=== PATIENT | male | born 1965 | race Caucasian/White ===

== ENCOUNTER → 2017-07-15 | Day surgery (SDC) | payer OTHER ==
[2017-07-14 11:33] LABS: BASOPHILS % 0.3 % (0.0-1.0); EOSINOPHILS # (AUTO) 0.2 (0.0-0.4); EOSINOPHILS % 2.5 % (0.0-6.0); HEMATOCRIT 52.3 % (38.2-49.6); HEMOGLOBIN 16.2 g/dL (14.0-18.0); LYMPHOCYTES % 31.7 % (18.0-39.1); MEAN CORPUSCULAR VOLUME 80.7 fL (81-99); MONOCYTES # (AUTO) 0.5 (0.2-0.8); MONOCYTES % 7.3 % (4.4-11.3); NEUTROPHILS # (AUTO) 3.7 (2.1-6.9); PLATELET COUNT 232 x10e3/uL (140-360); RED BLOOD COUNT 6.48 x10e6/uL (4.3-5.7); RED CELL DISTRIBUTION WIDTH 15.9 % (11.7-14.4)
[2017-07-14 11:43] LABS: INR 1.1; PROTHROMBIN TIME 13.4 seconds (11.9-14.5)
[2017-07-14 11:53] LABS: ALANINE AMINOTRANSFERASE 19 IU/L (0-55); ALBUMIN 3.9 g/dL (3.5-5.0); ALBUMIN/GLOBULIN RATIO 1.1 (0.8-2.0); ALKALINE PHOSPHATASE 75 IU/L (40-150); BLOOD UREA NITROGEN 20 mg/dL (7-26); BUN/CREATININE RATIO 17 (6-25); CALCIUM 9.8 mg/dL (8.4-10.2); CARBON DIOXIDE 28 mmol/L (22-29); CHLORIDE 101 mmol/L (98-107); CHOLESTEROL 195 MD/DL (0-199); EST GLOMERULAR FILTRATION RATE > 60 ML/MIN (60-); GLUCOSE 142 mg/dL (74-118); HDL CHOLESTEROL 39 MG/DL (40-60); LDL CHOLESTEROL 119 MG/DL (60-130); SODIUM 139 mmol/L (136-145); TRIGLYCERIDES 185 MG/DL (0-149)
[~2017-07-15] VITALS: Ht 195.6 cm; Wt 138.3 kg
[~2017-07-15] MED LIST: AXIRON30 MG/1.5 IM; BYDUREON2 MG SC; CEPHALEXIN250 M1 PO; FENTANYL CITRATE/PF 100MCG/2 ML INJ ONE; HEPARIN SOD (PORCINE) 1000 UNIT/ML 30ML ONE; IOPAMIDOL 370 MG/ML 200 ML INFUS..BTL INJ ONE; LIDOCAINE HCL 2% LOCAL 20 ML VIAL ONE; LOSARTAN POTASS50 MG PO; METFORMIN HCL1000 MG PO; METOPROLOL SUCC50 MG PO; METOPROLOL TART50 MG PO; MIDAZOLAM HCL 2 MG/2 ML VIAL ONE; MORPHINE SULFATE 2 MG/ML SYR ONE; NITROGLYCERIN/D5W 200 MCG/ML 250 ML ONE; SODIUM CHLORIDE 0.9% 1000ML 1,000 ML ONE; XARELTO10 MG PO; invokana PO
[2017-07-15 06:53] VITALS: BP 162/92
[2017-07-15 08:58] VITALS: BP 123/78
[2017-07-15 09:07] VITALS: BP 117/83
[2017-07-15 09:25] VITALS: BP 122/82
--- NOTE | 2017-07-15 09:40 | Operative Report ---
DATE OF PROCEDURE: July 15, 2017 PROCEDURE INDICATIONS: Atypical chest pain with abnormal stress test and impairment in ventricular systolic function consistent with mild heart failure, atrial flutter. Concern for unstable angina. PROCEDURES PERFORMED 1. Left heart catheterization. 2. Selective coronary angiography times 2. 3. Right femoral artery 6-Mauritanian Angio-Seal closure. PROCEDURE COMPLICATIONS: None. ESTIMATED BLOOD LOSS: Less than 5 mL. PROCEDURE SUMMARY: After consent was obtained, the patient was prepped and draped in a sterile fashion. The right femoral side was locally infiltrated with 2% lidocaine. Access was obtained using micropuncture kit and a 6-Mauritanian sheath was placed. All catheters were railed over a J-wire to the proximal ascending aorta. The JL4 6-Mauritanian was used for engagement of the left main. Angiography in multiple views. Similarly, the JR4 6-Mauritanian catheter was used for engagement of the right coronary artery and angiography, as well as to cross the aortic valve with hemodynamic measurements. The following findings are noted: 1. LV pressure was 139/8 with end-diastolic pressure of 14-20. 2. Aortic pressure is 138/90. 3. Left main with luminal irregularities and large caliber gives rise to LAD and circumflex. 4. LAD has luminal irregularities in its proximal portion. In the midportion, there is a focal area of 30% stenosis. It gives 3 diagonals and multiple sets of perforators as it courses through the apex where it wraps around and ends. 5. The circumflex gives a short obtuse marginal of small caliber and medium caliber of 2nd obtuse marginal after which the circumflex has a 30% focal area of stenosis prior to giving 3 additional terminal branches, mainly left posterolateral branch, as well as the left PDA. 6. The right coronary artery has luminal irregularities. It is nondominant and has 2 RV marginals prior to ending. 7. The LV-gram reveals mild global impairment of left ventricular systolic function with left ventricular ejection fraction of 40% to 45%. 8. LV pressure was 139/8 with end-diastolic pressure of 14-20. Aortic pressure was 138/90. CONCLUSIONS 1. Mild multivessel coronary artery disease. 2. Nonischemic cardiomyopathy and mild systolic heart failure. 3. Atrial flutter. RECOMMENDATIONS: Outpatient evaluation by cardiac electrophysiology. Optimize management of CAD, CHF, and coronary artery disease. Add aspirin and statin. Job#: [id number] RI
== END | disposition home or self-care (01) ==
LOC: CATH LAB 08:35
PROVIDERS: ATTEND Internal Medicine Cardiovascular Disease
DX: I25.10 Atherosclerotic heart disease of native coronary artery without angina pectoris (principal); I48.92 Unspecified atrial flutter; I42.8 Other cardiomyopathies; I11.0 Hypertensive heart disease with heart failure; I50.20 Unspecified systolic (congestive) heart failure; I48.0 Paroxysmal atrial fibrillation; R94.39 Abnormal result of other cardiovascular function study; D64.9 Anemia, unspecified; E11.9 Type 2 diabetes mellitus without complications; E66.9 Obesity, unspecified; N52.9 Male erectile dysfunction, unspecified; Z01.810 Encounter for preprocedural cardiovascular examination; Z01.812 Encounter for preprocedural laboratory examination; Z79.02 Long term (current) use of antithrombotics/antiplatelets; Z68.36 Body mass index [BMI] 36.0-36.9, adult
CPT/HCPCS: 36415; 77002; 80053; 80061; 85025; 85610; 93005; 93458; C1769; J1644; J2001; J2250; J2270; J7030; Q9967; 36140; 93452

== ENCOUNTER → 2018-07-07 | Outpatient (CLI) | payer OTHER ==
[~2018-07-07] MED LIST changes: +AMIODARONE HCL200 MG PO; +BACTRIM DS TAB1 EACH PO; +CIPRO500 MG PO; -FENTANYL CITRATE/PF 100MCG/2 ML INJ ONE; +GLIMEPIRIDE2 MG PO; -HEPARIN SOD (PORCINE) 1000 UNIT/ML 30ML ONE; +HYDROCHLOROTHIA25 MG PO; -IOPAMIDOL 370 MG/ML 200 ML INFUS..BTL INJ ONE; -LIDOCAINE HCL 2% LOCAL 20 ML VIAL ONE; -MIDAZOLAM HCL 2 MG/2 ML VIAL ONE; -MORPHINE SULFATE 2 MG/ML SYR ONE; -NITROGLYCERIN/D5W 200 MCG/ML 250 ML ONE; -SODIUM CHLORIDE 0.9% 1000ML 1,000 ML ONE; +farxiga PO
--- NOTE | 2018-07-07 16:33 | Diagnostic Imaging Report ---
MRI of the left forefoot without contrast. History: Foot pain. Osteomyelitis. Ulcer. Pain not responding to conservative management prior surgery. Diabetes. Technique: Multiplanar multisequence MRI of the foot without contrast Comparison: MRI 06/25/2015 Findings: There is abnormal skin ulceration and skin thickening at the lateral aspect of the foot at the level of the proximal fifth metatarsal. There is abnormal adjacent soft tissue edema. No well-formed fluid collection/abscess is seen. There is a sinus tract extending to the underlying distal lateral fifth metatarsal with underlying cortical destruction and bone marrow edema consistent with osteomyelitis. This is best seen on series 8 image 12 through 15. There is bone marrow edema in the lateral aspect of the cuboid bone and in the navicular bone which is likely stress related. There is marked thickening and degeneration involving the medial cord of the plantar fascia. Scattered degenerative changes are seen most pronounced at the first metatarsophalangeal joint. No ligamentous or tendon tear is seen. The visualized neurovascular bundles are intact. Impression: Skin ulceration and skin thickening at the lateral aspect of the foot at the level of the proximal fifth metatarsal. There is abnormal adjacent soft tissue edema. No well-formed fluid collection/abscess is seen. There is a sinus tract extending to the underlying distal lateral fifth metatarsal with underlying cortical destruction and bone marrow edema consistent with osteomyelitis. Marked thickening and degeneration involving the medial cord of the plantar fascia Signed by: Dr. Iker Joyce M.D. on 07/07/2018 4:29 PM
== END ==
LOC: MRI 13:43
PROVIDERS: ATTEND Podiatrist Foot & Ankle Surgery
DX: M86.272 Subacute osteomyelitis, left ankle and foot (principal)

== ENCOUNTER 2018-07-09 17:26 | Inpatient (IN) | payer OTHER ==
[~2018-07-09] VITALS: Ht 195.6 cm; Wt 128.5 kg
[~2018-07-09 17:26] MED LIST changes: -AMIODARONE HCL200 MG PO; -BACTRIM DS TAB1 EACH PO; -CIPRO500 MG PO; -HYDROCHLOROTHIA25 MG PO; -farxiga PO
--- OUTSIDE RECORDS SUMMARY | 2018-07-09 17:29 | XMS REPORT ---
[facility] Address Unknown Phone Unavailable Care Team Providers Care Ice Skating Instructor Name Role Phone Noemi JO Unavailable Unavailable Problems This patient has no known problems. Allergies, Adverse Reactions, Alerts This patient has no known allergies or adverse reactions. Medications This patient has no known medications. Results Test Description Test Time Test Comments Text Results Atomic Results Result Comments MRI FOOT LEFT WO 2018-07-07 16:25:00 [facility] [address] [address] Patient Name: JOJO LOMBARDI JR MR #: [id number] : 1965 Age/Sex: 53/M Req #: [id number] Adm Physician: Ordered by: MADI JO DPM Report #: [id number] Location: MRI Room/Bed: Procedure: [id number] MRI/MRI FOOT LEFT WO Exam Date: Exam Time: REPORT STATUS: Signed MRI of the left forefoot without contrast. History: Foot pain. Osteomyelitis. Ulcer. Pain not responding to conservative management prior surgery. Diabetes. Technique: Multiplanar multisequence MRI of the foot without contrast Comparison: MRI 06/25/2015 Findings: There is abnormal skin ulceration and skin thickening at the lateral aspect of the foot at the level of the proximal fifth metatarsal. There is abnormal adjacent soft tissue edema. No well-formed fluid collection/abscess is seen. There is a sinus tract extending to the underlying distal lateral fifth metatarsal with underlying cortical destruction and bone marrow edema consistent with osteomyelitis. This is best seen on series 8 image 12 through 15. There is bone marrow edema in the lateral aspect of the cuboid bone and in the navicular bone which is likely stress related. There is marked thickening and degeneration involving the medial cord of the plantar fascia. Scattered degenerative changes are seen most pronounced at the first me tatarsophalangeal joint. No ligamentous or tendon tear is seen. The visualized neurovascular bundles are intact. Impression: Skin ulceration and skin thickening at the lateral aspect of the foot at the level of the proximal fifth metatarsal. There is abnormal adjacent soft tissue edema. No well-formed fluid collection/abscess is seen. There is a sinus tract extending to the underlying distal lateral fifth metatarsal with underlying cortical destruction and bone marrow edema consistent with osteomyelitis. Marked thickening and degeneration involving the medial cord of the plantar fascia Signed by: Dr. Garrick Joyce M.D. on 07/07/2018 4:29 PM Dictated By: GARRICK JOYCE MD, MD [id number] Transcribed By: JENNIFER on 07/07/18 1626 COPY TO: MADI JO DPM
[2018-07-09 18:49] LABS: BASOPHILS % 0.2 % (0.0-1.0); EOSINOPHILS # (AUTO) 0.2 (0.0-0.4); EOSINOPHILS % 3.7 % (0.0-6.0); HEMATOCRIT 43.2 % (38.2-49.6); LYMPHOCYTES # (AUTO) 1.4 (1.0-3.2); LYMPHOCYTES % 24.8 % (18.0-39.1); MEAN CORPUSCULAR HEMOGLOBIN 28.2 pg (28-32); MEAN CORPUSCULAR HGB CONC 32.4 g/dL (31-35); MEAN CORPUSCULAR VOLUME 86.9 fL (81-99); MONOCYTES # (AUTO) 0.6 (0.2-0.8); MONOCYTES % 11.3 % (4.4-11.3); NEUTROPHILS # (AUTO) 3.4 (2.1-6.9); NEUTROPHILS % 59.8 % (38.7-80.0); PLATELET COUNT 259 x10e3/uL (140-360); RED BLOOD COUNT 4.97 x10e6/uL (4.3-5.7); RED CELL DISTRIBUTION WIDTH 16.4 % (11.7-14.4)
[2018-07-09 18:58] LABS: INR 1.66; PROTHROMBIN TIME 20.2 seconds (11.9-14.5)
[2018-07-09 19:07] LABS: ALANINE AMINOTRANSFERASE 18 IU/L (0-55); ALBUMIN 3.6 g/dL (3.5-5.0); ALBUMIN/GLOBULIN RATIO 0.9 (0.8-2.0); ALKALINE PHOSPHATASE 68 IU/L (40-150); ANION GAP 11.7 mmol/L (8-16); BLOOD UREA NITROGEN 23 mg/dL (7-26); BUN/CREATININE RATIO 19 (6-25); CALCIUM 9.3 mg/dL (8.4-10.2); CARBON DIOXIDE 29 mmol/L (22-29); CHLORIDE 99 mmol/L (98-107); CREATININE, SERUM 1.22 mg/dL (0.72-1.25); EST GLOMERULAR FILTRATION RATE > 60 ML/MIN (60-); GLUCOSE 106 mg/dL (74-118); POTASSIUM 3.7 mmol/L (3.5-5.1); SODIUM 136 mmol/L (136-145)
[2018-07-09] MEDS ORDERED: MORPHINE SULFATE 2 MG/ML SYR 1ML IV PRN (20:00)
[2018-07-09] MEDS ORDERED: SODIUM CHLORIDE FLUSH 10 ML SYR INJ PRN (20:00)
[2018-07-09] MEDS: PIPER-TAZ 3.375 GM 50 ML IV SCH (20:46)
[2018-07-09] MEDS: INSULIN REGULAR, HUMAN 100 UNIT/1 ML 3ML VIAL SQ SCH (21:00)
[2018-07-09] MEDS ORDERED: DEXTROSE 50% SYRINGE 50 ML IV PRN (21:00)
[2018-07-09 21:07] VITALS: BP 121/73
--- NOTE | 2018-07-09 21:07 | NUR ---
patient received to room 291 via wheelchair from the er. vss. no c/o pain noted. wound to left lateral foot with dressing. wound to right big toe and right 5th(pinky) toe. admit assessment/history obtained. noted at the bedside. patient/ instructed to call for assistance when needed.
[2018-07-09] MEDS ORDERED: SODIUM CHLORIDE 0.9% 250ML 250 ML ONE (21:30)
[2018-07-09] MEDS: VANCOMYCIN 1GM/NS 250 ML 250 ML IV SCH (21:30)
[2018-07-09 22:11] VITALS: BP 121/73
[2018-07-09] MEDS ORDERED: AMIODARONE HCL200 MG PO (22:20)
[2018-07-09] MEDS ORDERED: HYDROCHLOROTHIA25 MG PO (22:21)
[2018-07-09] MEDS ORDERED: CIPRO500 MG PO (22:22)
[2018-07-09] MEDS ORDERED: BACTRIM DS TAB1 EACH PO (22:23)
[2018-07-09] MEDS ORDERED: farxiga PO (22:26)
[2018-07-09] MEDS: ONDANSETRON HCL INJ 2MG/ML 2ML 2 MG/ML VIAL IV PRN (23:10)
[2018-07-09] MEDS: MORPHINE SULFATE INJ 4 MG/ML INJ 1ML IV PRN (23:10)
--- NOTE | 2018-07-09 23:10 | NUR ---
patient medicated with morphine 4 mg and zofran 4 mg ivp for c/o left foot pain 09/13.
[2018-07-10] VITALS (8 sets, daily range): BP systolic 115–147; BP diastolic 64–69
[2018-07-10] MEDS: PIPER-TAZ 3.375 GM 50 ML IV SCH ×3 (03:36→20:00)
[2018-07-10] MEDS: MORPHINE SULFATE INJ 4 MG/ML INJ 1ML IV PRN ×3 (03:40→22:10)
[2018-07-10] MEDS: ONDANSETRON HCL INJ 2MG/ML 2ML 2 MG/ML VIAL IV PRN ×2 (03:40→22:10)
--- NOTE | 2018-07-10 03:40 | NUR ---
patient medicated with morphine 4 mg and zofran 4 mg ivp for c/o right foot pain 09/13.
[2018-07-10 05:55] LABS: BASOPHILS % 0.2 % (0.0-1.0); EOSINOPHILS # (AUTO) 0.2 (0.0-0.4); EOSINOPHILS % 4.6 % (0.0-6.0); HEMATOCRIT 39.3 % (38.2-49.6); HEMOGLOBIN 12.4 g/dL (14.0-18.0); LYMPHOCYTES # (AUTO) 1.2 (1.0-3.2); LYMPHOCYTES % 25.4 % (18.0-39.1); MEAN CORPUSCULAR HEMOGLOBIN 27.6 pg (28-32); MEAN CORPUSCULAR HGB CONC 31.6 g/dL (31-35); MEAN CORPUSCULAR VOLUME 87.3 fL (81-99); MONOCYTES # (AUTO) 0.5 (0.2-0.8); MONOCYTES % 11.7 % (4.4-11.3); NEUTROPHILS # (AUTO) 2.6 (2.1-6.9); NEUTROPHILS % 58.1 % (38.7-80.0); PLATELET COUNT 189 x10e3/uL (140-360); RED CELL DISTRIBUTION WIDTH 16.4 % (11.7-14.4)
--- NOTE | 2018-07-10 06:00 | NUR ---
wound to left lateral foot cleaned and santyl ointment (patients home medication) applied. clean dressing applied to left foot at this time. no c/o pain noted.
[2018-07-10 06:15] LABS: ALANINE AMINOTRANSFERASE 15 IU/L (0-55); ALBUMIN 3.3 g/dL (3.5-5.0); ALKALINE PHOSPHATASE 60 IU/L (40-150); ANION GAP 12.5 mmol/L (8-16); BLOOD UREA NITROGEN 20 mg/dL (7-26); BUN/CREATININE RATIO 20 (6-25); CALCIUM 9.1 mg/dL (8.4-10.2); CARBON DIOXIDE 30 mmol/L (22-29); CHLORIDE 100 mmol/L (98-107); CREATININE, SERUM 1.01 mg/dL (0.72-1.25); EST GLOMERULAR FILTRATION RATE > 60 ML/MIN (60-); GLUCOSE 129 mg/dL (74-118); POTASSIUM 4.5 mmol/L (3.5-5.1); SODIUM 138 mmol/L (136-145)
--- NOTE | 2018-07-10 07:00 | NUR ---
here to see patient. wound culture obtained and clean dressing reapplied by at this time.
[2018-07-10] MEDS: INSULIN REGULAR, HUMAN 100 UNIT/1 ML 3ML VIAL SQ SCH ×3 (07:30→16:30)
[2018-07-10] MEDS: VANCOMYCIN 1GM/NS 250 ML 250 ML IV SCH ×3 (07:45→21:00)
[2018-07-10] MEDS: RIVAROXABAN 20 MG TABLET PO SCH (09:30)
--- NOTE | 2018-07-10 12:20 | Consultation ---
DATE OF CONSULTATION: REASON FOR CONSULTATION: Left foot wound. HISTORY OF PRESENT ILLNESS: This is a 53-year-old male with past medical history of type 2 diabetes, hypertension, and atrial fibrillation, who was admitted through the emergency room yesterday for a worsening infection in his left foot. The patient is well known to me. He was being treated in the office for the left foot ulceration over the last two weeks and it continued to be worsened. Outpatient MRI ordered, was noted to be osteomyelitis. The patient has not been seeing a previous stereo operator for several months and has had multiple surgeries to bilateral feet. The most recent ulceration has been present for approximately two months. The patient is seen at bedside this morning. Currently denies nausea, vomiting, fever, chills, chest pain, or shortness of breath. No other pedal complaints at this time. PAST MEDICAL HISTORY: Type 2 diabetes, peripheral neuropathy, hypertension, atrial fibrillation. MEDICATIONS: Per the chart. ALLERGIES: ERYTHROMYCIN. PAST SURGICAL HISTORY: Knee surgery, tonsillectomy, multiple procedures to bilateral feet. SOCIAL HISTORY: Denies smoking. Denies drinking. Denies any illicit drug use. REVIEW OF SYSTEMS: The patient currently denies nausea, vomiting, fever, chills, chest pain, or shortness of breath. PHYSICAL EXAMINATION: GENERAL: Alert and oriented x3, in no apparent distress. VITAL SIGNS: Today, temperature is 96.8, heart rate 45, respiratory rate 17, blood pressure 115/66, pulse ox 98% on room air. PROBLEM FOCUSED LOWER EXTREMITY PHYSICAL EXAM: Vascular; dorsalis pedis and posterior tibial pulses are palpable. Capillary refill time approximately 3 to 4 seconds to all digits. Improvement in periwound erythema, edema, and warmth to the left lower extremity. NEUROLOGICAL: Absent to light touch bilateral. MUSCULOSKELETAL: Varus rotation of the left foot and ankle. DERMATOLOGICAL: A fibrotic ulceration is noted to the patient's left 5th metatarsal base, is approximately 2 cm x 2 cm. It is 80% fibrotic with mild necrotic tissue noted centrally. Less than 2 cm of periwound erythema, edema, and warmth. LABORATORY DATA: White blood cell count is 4.53, hemoglobin 12.4, hematocrit 39.3, platelet count is 189. Sodium 138, potassium 4.5, chloride 100, CO2 of 30, BUN 20, creatinine 1.01. Glucose 129. IMAGING DATA: Left foot MRI; skin ulceration and skin thickening at the lateral aspect of the foot at the level of the proximal 5th metatarsal. Abnormal adjacent soft tissue edema. No well-formed fluid collection or abscess is seen. There is a sinus tract extending into the underlying distal lateral 5th metatarsal with underlying cortical destruction and bone marrow edema consistent with osteomyelitis. ASSESSMENT: 1. Left foot ulceration and cellulitis with underlying osteomyelitis. 2. Type 2 diabetes and peripheral neuropathy. 3. Hypertension. PLAN: The patient was seen and evaluated. Discussed condition, labs, and treatment options with the patient in detail. At this time due to osteomyelitis and the current location of the ulcer, I did not recommended amputation at this time. We will recommend four to six weeks of IV antibiotics with a PICC line as well as local wound care. We will recommend Infectious Disease consultation. Continue local wound care with Santyl and saline, wet-to-dry to the left lower extremity. Podiatry Service will continue to monitor as an inpatient. The patient will be stable to discharge from Podiatry standpoint once PICC line and IV antibiotics at home are set up. VIVI Gallegos/DOMENICA /[id number]
--- NOTE | 2018-07-10 12:28 | NUR ---
SOCIAL WORK INITIAL ASSESSMENT Blow Torch Burner to bedside to discuss plan of care with patient/family. CM/SW role and care transitions discussed. Anticipated discharge plan discussed along with duration of care. CM/SW discussed patients right to make decisions in care. CM/SW work hours given. Patient lives: IN HOUSE WITH FAMILY Admit/Transfer: VIA PCP THROUGH ED FOR IV TX FOR ABX POA/Emergency contact: TERESA [phone] Current/Previous Home Health: NONE PCP/Follow-up Care: KAMRAN Current/Previous DME: NONE Other Services: NONE Employment Status: [employer] Areas of Concerns: NONE Referral Needs: NONE Education Needs: NONE IMM/MEHTA given and signed (if applicable): NA Goal for discharge: RETURN HOME NO NEEDS CM/SW left business card at the bedside with contact information. Name and number was also written on the patients whiteboard. Patient verbalized understanding of discussion. CM will follow-up with ongoing discharge and transition of care needs.
[2018-07-10] MEDS: INSULIN LISPRO 100 UNIT/1 ML 3ML VIAL SQ SCH ×2 (16:30→20:47)
[2018-07-10 16:47] LABS: FREE T4 (FREE THYROXINE) 1.1 ng/dL (0.9-1.8); THYROID STIMULATING HORMONE 4.724 uIU/mL (0.350-4.940)
--- NOTE | 2018-07-10 18:46 | History and Physical ---
PRIMARY CARE PHYSICIAN: Koby Bradshaw MD. OIL PLANT OPERATOR: Earl Rick DPM CHIEF COMPLAINT: Nonhealing wound infected diabetic foot ulcer of the left foot. HISTORY OF PRESENT ILLNESS: The patient is a 53 years old male with left foot diabetic foot ulcer infection, nonhealing wound, failed outpatient treatment with Cipro and Bactrim antibiotics orally. The patient had diabetes type 2, on oral hypoglycemic medication. Along with that, he has advanced diabetic neuropathy of bilateral lower extremity. The patient came in with a left foot ulcer, nonhealing with infection. He is placed on Zosyn and vancomycin. The patient is otherwise medically stable. PAST MEDICAL HISTORY: Peripheral arterial disease, capillary associated with diabetic neuropathy. Diabetes type 2, on oral medication. Osteomyelitis with multiple bone and joint surgery. Atrial fibrillation on anticoagulant therapy with Xarelto. Hypertension. PAST SURGICAL HISTORY: Multiple bone and joint surgery. SOCIAL HISTORY: The patient does not smoke, but he is a social drinker. ALLERGIES: TO ERYTHROMYCIN BASE. HOME MEDICATIONS: 1. Amiodarone. 2. Cipro. 3. HCTZ. 4. Losartan. 5. Metformin. 6. Metoprolol succinate. 7. Xarelto. 8. Bactrim. 9. Farxiga. PHYSICAL EXAMINATION: VITAL SIGNS: Temperature is 98, blood pressure 115/66, pulse rate is 52, respiration 18. GENERAL: The patient is not in acute distress. He is awake. HEENT: Normocephalic, atraumatic. Anicteric. NECK: Supple grossly. PULMONARY: Diminished breath sounds. CARDIOVASCULAR: Irregular with bradycardia. ABDOMEN: Soft, nontender, nondistented. EXTREMITIES: No gross cyanosis. There is a small nonhealing diabetic ulcer of the right great toe on the bottom, healing. No drainage. Left foot diabetic foot ulcer with infection and drainage of the left plantar surface of the midfoot area to the lateral side. NEUROLOGIC: Diabetic neuropathy. LABORATORY DATA: Sodium is 138, potassium 4.5, chloride 100, bicarb 30, BUN 20, creatinine 1.0, glucose 129. WBC is 4.5, hemoglobin 12.4, hematocrit 39.4, platelets is 189. INR is 1.66. Liver enzymes unremarkable. IMAGING: The foot MRI which was done on July 07, 2018, shown skin ulceration and skin thickening at the lateral aspect of the foot at the level of the proximal 5th metatarsal. There is abnormal adjacent soft tissue edema. No well-formed fluid collection or abscess is seen. There is a sinus tract extending to the underlying distal lateral 5th metatarsal with underlying cortical destruction of bone marrow and edema consistent with osteomyelitis. IMPRESSION: 1. Left foot osteomyelitis. 2. Left infected diabetic foot ulcer. 3. Diabetes type 2, on oral medication. 4. Peripheral arterial disease. PLAN: IV antibiotics. Consultation with Dr. Betancourt. Continue with current medication for now. Insulin sliding scale coverage. Oral medication. We will repeat the lab work. We will need PICC line and outpatient antibiotic monitoring and treatment. MD BRAYAN Thomas/DOMENICA /[id number]
--- NOTE | 2018-07-10 19:00 | NUR ---
patient received awake, alert, lying quietly in bed. no c/o pain noted at this time. dressing to left foot remains c,d,i. pm assessment complete. noted at the bedside. patient instructed to call for assistance when needed.
--- NOTE | 2018-07-10 20:30 | NUR ---
Vancomycin trough level collected at this time and sent to lab.
--- NOTE | 2018-07-10 21:00 | NUR ---
vancomycin trough 6.9. scheduled vancomycin given at this time.
--- NOTE | 2018-07-10 22:10 | NUR ---
patient medicated with morphine 4 mg and zofran 4 mg ivp for c/o left foot pain 4/10 at this time.
--- NOTE | 2018-07-10 23:27 | Consultation ---
DATE OF CONSULTATION: 07/10/[address] Endocrine Consult[address] Patient of Dr. Ornelas. Thank you very much for consultation. HISTORY OF PRESENT ILLNESS: This is a 53-year-old white gentleman, who is very well known to me from his previous followup in my office. The patient is a known diabetic for almost 8 to 10 years and is presently on Farxiga and metformin. The patient came to the hospital with history of nonhealing ulcer of the left foot at the direction of his foot doctor. The patient also has history of hypertension and cardiac arrhythmias. MEDICATIONS: His other routine medications include amiodarone, metformin, and losartan. PHYSICAL EXAMINATION: GENERAL: Today, the patient is alert, awake, a little bit apprehensive, moderately overweight. VITAL SIGNS: His heart rate is around 70 and blood pressure 140/80 mmHg. HEENT: Essentially unremarkable. Thyroid is palpable. Clinically, he is near euthyroid. CHEST: Reveals bilateral vesicular breathing. No rales. CARDIAC: Reveals first and second heart sounds. There is no third or fourth heart sound. EXTREMITIES: The left foot shows an ulcer on the sole of the foot, which is the size of about almost an inch and half with some induration and yellowish discharge. LABORATORY DATA: His labs show his hemoglobin of 12.4 with hematocrit of 39.4 and the white count is 4.5. Blood sugars have been in 120 to 150 range. CLINICAL IMPRESSION: Diabetes mellitus type 2 with complications, left-sided foot ulcer, cardiac arrhythmias, and hypertension. PLAN: The plan at this time is to do hemoglobin A1c, thyroid function test. Monitor his blood sugars closely. Discontinue the Farxiga for now and put him on the insulin as needed depending upon the blood sugars and metformin. Thank you for referring this patient. I will be following this patient with you. MD JUSTINO Bailey/DOMENICA /[id number]
[2018-07-11] VITALS (7 sets, daily range): BP systolic 113–138; BP diastolic 56–74
[2018-07-11] MEDS: MORPHINE SULFATE INJ 4 MG/ML INJ 1ML IV PRN ×4 (02:20→22:45)
[2018-07-11] MEDS: ONDANSETRON HCL INJ 2MG/ML 2ML 2 MG/ML VIAL IV PRN ×4 (02:20→22:45)
--- NOTE | 2018-07-11 02:20 | NUR ---
patient medicated with morphine 4 mg and zofran 4 mg ivp for c/o left foot pain 5/10 at this time.
[2018-07-11] MEDS: PIPER-TAZ 3.375 GM 50 ML IV SCH ×2 (03:32→12:40)
--- NOTE | 2018-07-11 07:12 | NUR ---
pt awake resp even and unlabored at this time no distress noted, pt able to make needs known, call light in reach.
[2018-07-11] MEDS: INSULIN LISPRO 100 UNIT/1 ML 3ML VIAL SQ SCH ×4 (07:30→21:00)
[2018-07-11] MEDS: VANCOMYCIN 1GM/NS 250 ML 250 ML IV SCH ×2 (07:45→19:45)
[2018-07-11] MEDS: METFORMIN HCL 500 MG TAB CR PO SCH (07:56)
[2018-07-11] MEDS: FARXIGA 10MG PO SCH (07:56)
[2018-07-11] MEDS: LOSARTAN POTASSIUM 100 MG TAB PO SCH (07:56)
[2018-07-11] MEDS: METOPROLOL SUCCINATE 50 MG TAB XL PO SCH (09:00)
[2018-07-11] MEDS ORDERED: AMIODARONE HCL 200 MG TAB PO SCH (09:00)
[2018-07-11] MEDS: AMIODARONE HCL 200 MG TAB PO SCH (09:00)
[2018-07-11] MEDS: RIVAROXABAN 20 MG TABLET PO SCH (09:00)
--- NOTE | 2018-07-11 11:58 | Progress Note ---
DATE: 07/11/2018 SUBJECTIVE: This is a 53-year-old male with past medical history of type 2 diabetes, hypertension, atrial fibrillation, who was admitted to the emergency room two days ago for an infection to his left foot. The patient currently relates that he is stable. Denies any nausea, vomiting, fever, chills, chest pain, or shortness of breath. No acute issues overnight. OBJECTIVE: VITAL SIGNS: Today temperature 96.3, heart rate 48, respiratory rate 18, blood pressure 134/61, pulse ox is 95% on room air. PROBLEM FOCUSED LOWER EXTREMITY PHYSICAL EXAM: VASCULAR: Dorsalis pedis and posterior tibial pulses are faintly palpable. Capillary refill time is approximately 3 to 4 seconds to all digits. Improvement of periwound erythema, edema and warmth to the left lower extremity. NEUROLOGIC: Sensation is absent to light touch bilateral. MUSCULOSKELETAL: Varus rotation of the foot and ankle. DERMATOLOGICAL: Fibrotic ulceration is noted to the patient's left 5th metatarsal base, approximately 2 cm x 2 cm. The wound is 80% fibrotic. No necrotic tissue was noted at this time. There is some granulation tissue to the peripheral aspect of the wound. LABORATORY DATA: White blood cell count is 4.5, hemoglobin 12.4, hematocrit 39.3, platelet count 189, neutrophil percentage 58.1, sedimentation rate is 22. Hemoglobin A1c is 5.7. ASSESSMENT: 1. Left foot ulceration with cellulitis, underlying osteomyelitis. 2. Type 2 diabetes, peripheral neuropathy. 3. Hypertension. PLAN: The patient was seen and evaluated. Discussed condition, labs and treatment options with the patient in detail. At this time due to the osteomyelitis and the current location of the ulcer, I do not recommend amputation at this time due leaving the patient with a nonfunctional foot. At this time, I would recommend a 4 to 6 weeks of IV antibiotics with a PICC line as well as local wound care with Santyl. Appreciated Infectious Disease consultation. Dressing was changed today with Santyl, followed by saline wet-to-dry. The Podiatry Service will continue to monitor as an inpatient. The patient is stable to be discharged from the Podiatry standpoint once PICC line and IV antibiotics are set up. VIVI Gallegos/DOMENICA Hilliard: 07/11/2018 10:07:21 /[id number]
--- NOTE | 2018-07-11 19:37 | NUR ---
report given to oncoming nurse, for continued care.
--- NOTE | 2018-07-11 21:46 | Consultation ---
DATE OF CONSULTATION: 07/10/2018 REASON FOR CONSULTATION: Osteomyelitis of the foot. Thank you so much for asking me to see this patient. HISTORY OF PRESENT ILLNESS: This is a very pleasant 53-year-old white male, who has history of diabetes mellitus type 2, history of neuropathy, Charcot joint, hypertension, and atrial fibrillation. The patient comes into the emergency room with infection of his left foot. The patient who has been having problem with his left foot for a few weeks, getting progressively worse now with redness and swelling. He does have an ulcer, which took place about a week ago. He had an MRI, in which he was positive for osteomyelitis. The patient has been seen by Dr. Rick as an outpatient, so he was sent to the hospital to be admitted, to start the IV antibiotic. The patient when I saw him, he was lying in bed, comfortable. He denies a history of specific trauma. There is no fever, no chills at present time. REVIEW OF SYSTEMS: Otherwise unremarkable. PAST MEDICAL HISTORY: Diabetes mellitus, neuropathy, hypertension, and atrial fibrillation. PAST SURGICAL HISTORY: Knee surgery, tonsillectomy, and multiple procedures to bilateral feet before. ALLERGIES: NKA. SOCIAL HISTORY: There is no smoking, drug abuse, or alcohol abuse. FAMILY HISTORY: Significant for diabetes mellitus and hypertension. REVIEW OF SYSTEMS: At the present time, GENERAL: He is not having fever or chills. : There is no urgency or frequency. SKIN: There is no other rash. No rash JOINT: There is no erythema or edema. Joint within normal limits. NEURO: There is no seizure activity or local weakness. All systems within normal limit. PHYSICAL EXAMINATION: GENERAL: He is currently alert, oriented, does not seem to be in acute distress. VITAL SIGNS: Stable. Afebrile. Heart rate is in the 50s. Respirations 17. HEENT: Normocephalic. Not icteric. NECK: Supple. No JVD. No lymphadenopathy. No thyromegaly. CHEST: Clear bilateral. HEART: S1, S2. No S3, S4, or murmur. ABDOMEN: Soft. Bowel sounds present. No tenderness. EXTREMITIES: There is no edema. He did have an ulcer on his 5th metatarsal about 2 x 2 cm with fibrotic tissue and mild necrosis, fibrotic about 80%. There is slight erythema and edema noted around it. LABORATORY DATA: Reviewed. MRI as mentioned above showed ulceration of the skin in lateral aspect. There is no abscess. There is sinus tracking extending into the underlying distal lateral 5th metatarsal with cortical destruction. IMPRESSION: Left foot osteomyelitis in a patient with diabetes mellitus, neuropathy, hypertension, concerned about vascular disease. Obtain sedimentation rate, C-reactive protein. Obtain the PICC line for IV antibiotic. We will put the patient on vancomycin and cefepime. He is currently on vancomycin and Zosyn. He would need six weeks of IV antibiotic, maybe more depending on his clinical progress. We will need weekly CBC, weekly Chem panel, vancomycin trough. We will discuss with Podiatry ideally if we can get wound culture from the bone. Discussed with the patient. We will follow. MD АНДРЕЙ Roger/DOMENICA /[id number]
[2018-07-11] MEDS: CEFEPIME 1GM/NS 0.9% 50 ML 50 ML IV SCH (22:00)
[2018-07-11] MEDS ORDERED: CEFEPIME HCL 1 GM VIAL IV SCH (22:00)
[2018-07-12] VITALS (8 sets, daily range): BP systolic 119–147; BP diastolic 56–71
[2018-07-12] MEDS: CEFEPIME 1GM/NS 0.9% 50 ML 50 ML IV SCH ×2 (05:28→11:58)
[2018-07-12] MEDS: INSULIN LISPRO 100 UNIT/1 ML 3ML VIAL SQ SCH ×4 (07:30→20:47)
[2018-07-12] MEDS: FARXIGA 10MG PO SCH (08:38)
[2018-07-12] MEDS: LOSARTAN POTASSIUM 100 MG TAB PO SCH (08:38)
[2018-07-12] MEDS: METFORMIN HCL 500 MG TAB CR PO SCH (08:38)
[2018-07-12] MEDS: AMIODARONE HCL 200 MG TAB PO SCH (08:38)
[2018-07-12] MEDS: VANCOMYCIN 1GM/NS 250 ML 250 ML IV SCH ×2 (08:38→19:45)
[2018-07-12] MEDS: ONDANSETRON HCL INJ 2MG/ML 2ML 2 MG/ML VIAL IV PRN ×2 (08:39→13:01)
[2018-07-12] MEDS: MORPHINE SULFATE INJ 4 MG/ML INJ 1ML IV PRN ×3 (08:39→17:01)
--- NOTE | 2018-07-12 08:39 | NUR ---
Pt received resting in bed. Alert and oriented x4 with left foot wound, clean, dry, and intact. Oriented to staff and surroundings. Emotional support given. Call lewis within reach. Will monitor
[2018-07-12] MEDS: METOPROLOL SUCCINATE 50 MG TAB XL PO SCH (09:00)
--- NOTE | 2018-07-12 09:50 | Progress Note ---
DATE: 07/12/2018 SUBJECTIVE: This is a 53-year-old male with past medical history of type 2 diabetes, hypertension, atrial fibrillation, who was admitted three days ago for worsening infection to his left foot. The patient currently denies nausea, vomiting, fever, chills, chest pain, or shortness of breath. No acute issues overnight. OBJECTIVE: VITAL SIGNS: Today temperature 96.0, heart rate 50, respiratory rate 20, blood pressure 147/71, pulse ox is 94% on room air. PROBLEM FOCUSED LOWER EXTREMITY PHYSICAL EXAM: Vascular; dorsalis pedis and posterior tibial pulses are faintly palpable. Capillary refill time is approximately 3 to 4 seconds to all digits. Improvement of periwound erythema, edema, and warmth to the left lower extremity. NEUROLOGICAL: Sensation is absent to light touch bilateral. MUSCULOSKELETAL: Varus rotation of the foot and ankle. DERMATOLOGICAL: Foot ulceration is noted to the patient's left 5th metatarsal base approximately 2 cm x 2 cm. Wound is 80% fibrotic, 20% granulation tissue. No necrotic tissue was noted at this time. LABORATORY DATA: No new labs today. ASSESSMENT: 1. Left foot ulceration with cellulitis. No underlying osteomyelitis. 2. Type 2 diabetes with peripheral neuropathy. 3. Hypertension. PLAN: The patient was seen and evaluated. Discussed condition, labs, and treatment options with the patient in detail. Discussed with the patient at this time due to the location of the osteomyelitis and the ulcer, I do not recommend amputation due to leaving the patient with a nonfunctional foot. At this time, would recommend 4 to 6 weeks of IV antibiotics through the PICC line. Continue local wound care daily with Santyl and saline wet-to-dry. The patient is stable to be discharged from the Podiatry standpoint with a PICC line and antibiotics set up. Can follow up as an outpatient in approximately 3 to 5 days after discharge. VIVI Gallegos/DOMENICA /[id number]
[2018-07-12] MEDS: RIVAROXABAN 20 MG TABLET PO SCH (12:19)
--- NOTE | 2018-07-12 12:46 | Diagnostic Imaging Report ---
EXAMINATION: CHEST XRAY LINE PLACEMENT INDICATION: Status post left PICC placement. COMPARISON: None FINDINGS: TUBES and LINES: Left-sided PICC terminates in the expected location of the mid SVC. LUNGS: Lungs are not well inflated. Central vascular congestion. There is no evidence of pneumonia or pulmonary edema. PLEURA: No pleural effusion or pneumothorax. HEART AND MEDIASTINUM: The cardiomediastinal silhouette is unremarkable. BONES AND SOFT TISSUES: No acute osseous abnormality. UPPER ABDOMEN: No free air under the diaphragm. IMPRESSION: Left-sided PICC terminates in the expected location of the mid SVC. No evidence of pneumothorax. Signed by: Dr. Gatito Law MD on 07/12/2018 12:43 PM
[2018-07-12] MEDS ORDERED: ONDANSETRON HCL 4 MG ORAL DISINTEGRATING TAB PO PRN (15:30)
--- NOTE | 2018-07-12 16:00 | NUR ---
CALL MADE TO [facility] REGARDING IV ABX. ZOE STATES PT'S INSURANCE IS OUT OF NETWORK. PT WOULD HAVE TO PAY $1200/WEEK. STATES SHE NOTIFIED AL. CALL WAS PLACED TO AL. ORDER WAS GIVEN FOR VANC AND CEFEPIME X 8WEEKS. CBC, BMP AND VANC TR Q MON; CALL RESULTS TO DR. JIMENEZ.
--- NOTE | 2018-07-12 16:38 | NUR ---
MET W THE PT AT THE BEDSIDE TO PROVIDE CHOICE. STATES HE HAS DONE IV ABX IN THE PAST; 2015. STATES HE WAS READY TO GO HOME TODAY. DISCUSSED CHOICE. STATES HE WANTS ANY AGENCY IN NETWORK. CHOICE LETTER WAS SIGNED AND COPY TO PT AND COPY TO CHART. CALL MADE TO DANGELO PALMER @ [phone]. STATES THEY RECEIVED THE REFERRAL FROM [facility] LAST THURSDAY. STATES THEY HAD BEEN CALLING THEIR OFFICE FOR UPDATES. REFERRAL FOR HOME IV ABX WAS FAXED TO DANGELO PALMER @ OFF: [phone] / FAX: [phone].
--- NOTE | 2018-07-12 17:39 | NUR ---
Wound Care Consultation - Request for Eval/ PUP SCREEN WC consulted for infected foot ulcer. Currently care being managed by Dr. Rick DPM Dr. Rick called plan of care reviewed. Deferred visit as requested at this time. Will follow up if needed. PUP Screen Performed. BS 21 Conservative PUP Active Visco Mattress in Place. No Pressure Ulcers Identified. Thank you for consulting with Wound Care. Addendum: 07/12/18 at 1742 by Tanmay Wolf RN Amended: Links added.
--- NOTE | 2018-07-12 19:10 | NUR ---
patient received awake, alert, lying quietly in bed. no c/o pain noted. dressing to left foot remains c,d,i. Christine Bustos with [facility] here to see patient re: home ivabx infusions. pm assessment complete. patient/ instructed to call for assistance when needed.
--- NOTE | 2018-07-12 20:11 | NUR ---
Pt demanding to go home after Vancomycin dose tonight. Dr. Betancourt, Dr. Rick, and Dr. Ornelas notified. Discharge instructions given regarding follow up with all doctors including Dr. Bradshaw, meds, diet, activities, and wound care. Pt verbalized understanding of teaching. Handoff given to oncoming nurse
[2018-07-12] MEDS ORDERED: COLLAGENASE 5 GM TUBE TOP SCH (21:00)
--- NOTE | 2018-07-12 22:30 | NUR ---
Patient discharged home with at this time. vss. no c/o pain noted. dressing to left foot c,d,i. discharge instructions given to patient by day shift nurse Zuly GUZMAN.
[2018-07-13] MEDS ORDERED: RIVAROXABAN 20 MG TABLET PO SCH (09:00)
== END 2018-07-12 22:30 | disposition home health service (06) | DRG 638 ==
LOC: ER 17:26 → ERHOLD 19:59 → MED/SURG3 21:09
PROVIDERS: ADMIT Internal Medicine; ATTEND Internal Medicine
PROC: 02HV33Z Insertion of Infusion Device into Superior Vena Cava, Percutaneous Approach (ICD-10-PCS; principal; 2018-07-09)
DX: E11.69 Type 2 diabetes mellitus with other specified complication (principal); L03.114 Cellulitis of left upper limb; M86.9 Osteomyelitis, unspecified; E11.621 Type 2 diabetes mellitus with foot ulcer; I73.9 Peripheral vascular disease, unspecified; E11.42 Type 2 diabetes mellitus with diabetic polyneuropathy; I10 Essential (primary) hypertension; I49.9 Cardiac arrhythmia, unspecified; Z79.899 Other long term (current) drug therapy; I48.91 Unspecified atrial fibrillation; Z79.01 Long term (current) use of anticoagulants
CPT/HCPCS: 36415; 36569; 71045; 80053; 80202; 82948; 83036; 84439; 84443; 85025; 85610; 85651; 85730; 86140; 87040; 87071; 87186; 87205; 99284; J0692; J2270; J2405; J2543; J3370; J7050

== ENCOUNTER → 2019-03-11 | Day surgery (SDC) | payer OTHER ==
[2019-03-09 15:06] LABS: BASOPHILS % 0.5 % (0.0-1.0); EOSINOPHILS # (AUTO) 0.1 (0.0-0.4); HEMATOCRIT 38.4 % (38.2-49.6); HEMOGLOBIN 12.6 g/dL (14.0-18.0); LYMPHOCYTES # (AUTO) 1.2 (1.0-3.2); LYMPHOCYTES % 27.4 % (18.0-39.1); MEAN CORPUSCULAR HEMOGLOBIN 30.2 pg (28-32); MEAN CORPUSCULAR HGB CONC 32.8 g/dL (31-35); MEAN CORPUSCULAR VOLUME 92.1 fL (81-99); MONOCYTES # (AUTO) 0.5 (0.2-0.8); MONOCYTES % 11.6 % (4.4-11.3); NEUTROPHILS # (AUTO) 2.5 (2.1-6.9); NEUTROPHILS % 57.3 % (38.7-80.0); PLATELET COUNT 227 x10e3/uL (140-360); RED BLOOD COUNT 4.17 x10e6/uL (4.3-5.7); RED CELL DISTRIBUTION WIDTH 12.7 % (11.7-14.4)
[~2019-03-11] MED LIST changes: +AMIODARONE HCL200 MG PO; +BACTRIM DS TAB1 EACH PO; +CIPRO500 MG PO; +DOXYCYCLINE HY100 MG PO; +FENTANYL CITRATE/PF 100MCG/2 ML INJ ONE; +GLUCAGON FOR INJ 1 MG VIAL ONE; +HYDROCHLOROTHIA25 MG PO; +HYOSCYAMINE 0.125 MG TAB ONE; +MIDAZOLAM HCL 2 MG/2 ML VIAL ONE; +PROPOFOL IV EMULSION 10 MG/ML 50 ML VIAL ONE; +farxiga PO
[2019-03-11 15:52] VITALS: BP 134/70
--- NOTE | 2019-03-11 23:04 | Operative Report ---
DATE OF PROCEDURE: 03/11/2019 SURGEON: Merrill Mcintyre MD PROCEDURE: Colonoscopy with polypectomy. REFERRING PHYSICIAN: Koby Bradshaw MD INDICATIONS FOR COLONOSCOPY: Surveillance colonoscopy, personal history of colon polyps, suboptimal prep on previous colonoscopy. MEDICATIONS: The patient was done under MAC, please see anesthesiologist's note. PROCEDURE IN DETAIL: With the patient in the left lateral decubitus position, flexible fiberoptic Olympus colonoscope was inserted into the rectum with ease and advanced all the way to the cecum. There were retained stools that were caked on the wall in the cecum and the ascending colon. One polyp was removed per hot snare polypectomy in the cecum and one polyp was hot snared, and one polyp was hot biopsied in the ascending colon. One polyp was hot snared from the transverse colon. Two polyps were hot biopsied from the descending colon and one polyp was hot snared from the rectum. The scope was then retroflexed into the distal rectum and small internal hemorrhoids were noted, none of which was actively bleeding. The scope was then straightened out it was subsequently withdrawn. The patient tolerated procedure well. IMPRESSION: 1. Suboptimal prep, right colon. 2. Cecal polyp, hot snared. 3. Ascending colon polyps x2, one hot snared, one hot biopsied. 4. Transverse colon polyp, hot snared. 5. Descending colon polyps x2, hot snared. 6. Rectal polyp x1, hot snared. 7. Internal hemorrhoids, none actively bleeding. PLAN: Follow up histology. Initiate high-fiber, low-fat diet. Initiate high-fiber supplement. Due to the suboptimal prep in the right colon, the patient might benefit from a followup colonoscopy in two years. A total of 7 polyps were removed. Merrill Mcintyre MD [facility] [place] /[id number] cc: Koby Bradshaw MD
== END | disposition home or self-care (01) ==
LOC: OR 11:55
PROVIDERS: ATTEND Internal Medicine Gastroenterology
DX: Z09 Encounter for follow-up examination after completed treatment for conditions other than malignant neoplasm (principal); D12.0 Benign neoplasm of cecum; D12.2 Benign neoplasm of ascending colon; D12.3 Benign neoplasm of transverse colon; D12.4 Benign neoplasm of descending colon; K62.1 Rectal polyp; K62.5 Hemorrhage of anus and rectum; K64.8 Other hemorrhoids; K59.00 Constipation, unspecified; E11.9 Type 2 diabetes mellitus without complications; I10 Essential (primary) hypertension; I48.91 Unspecified atrial fibrillation; R00.1 Bradycardia, unspecified; Z88.1 Allergy status to other antibiotic agents; Z01.810 Encounter for preprocedural cardiovascular examination; Z01.812 Encounter for preprocedural laboratory examination; Z79.02 Long term (current) use of antithrombotics/antiplatelets; Z79.84 Long term (current) use of oral hypoglycemic drugs; Z68.41 Body mass index [BMI] 40.0-44.9, adult
CPT/HCPCS: 36415 ×2; 45384; 45385; 82948; 85025; 93005; J1610; J2250; J2704; J3010; 45378

== ENCOUNTER → 2019-09-08 | Day surgery (SDC) | payer OTHER ==
[2019-09-05 11:48] LABS: BASOPHILS % 0.3 % (0.0-1.0); EOSINOPHILS # (AUTO) 0.3 (0.0-0.4); EOSINOPHILS % 3.8 % (0.0-6.0); HEMATOCRIT 38.1 % (38.2-49.6); HEMOGLOBIN 12.2 g/dL (14.0-18.0); LYMPHOCYTES # (AUTO) 1.3 (1.0-3.2); LYMPHOCYTES % 18.3 % (18.0-39.1); MEAN CORPUSCULAR HEMOGLOBIN 28.6 pg (28-32); MEAN CORPUSCULAR VOLUME 89.4 fL (81-99); MONOCYTES # (AUTO) 0.7 (0.2-0.8); MONOCYTES % 9.7 % (4.4-11.3); NEUTROPHILS # (AUTO) 4.7 (2.1-6.9); PLATELET COUNT 240 x10e3/uL (140-360); RED BLOOD COUNT 4.26 x10e6/uL (4.3-5.7); RED CELL DISTRIBUTION WIDTH 13.9 % (11.7-14.4)
[2019-09-05 12:12] LABS: INR 1.4; PROTHROMBIN TIME 18.1 seconds (11.9-14.5)
[2019-09-05 12:22] LABS: ALBUMIN 3.3 g/dL (3.5-5.0); ALBUMIN/GLOBULIN RATIO 0.8 (0.8-2.0); ANION GAP 14.1 mmol/L (8-16); CALCIUM 9.2 mg/dL (8.4-10.2); CHOL/HDL RATIO 3.9 (3.9-4.7); CREATININE, SERUM 1.25 mg/dL (0.72-1.25); POTASSIUM 4.1 mmol/L (3.5-5.1)
[~2019-09-08] VITALS: Ht 195.6 cm; Wt 158.8 kg
[2019-09-08] VITALS (10 sets, daily range): BP systolic 91–140; BP diastolic 55–79
[~2019-09-08] MED LIST changes: +ASPIRIN 325 MG TAB ONE; -GLUCAGON FOR INJ 1 MG VIAL ONE; +HEPARIN SOD (PORCINE) 1000 UNIT/ML 30ML ONE; +HEPARIN SOD/SOD CHLORIDE 2,000 ML ONE; +HYDROCODONE/APAP 5MG-325MG TAB ONE; -HYOSCYAMINE 0.125 MG TAB ONE; +IOPAMIDOL 300MG/ML 100 ML INFUS..BTL IV ONE; +LEVAQUIN500 MG PO; +LIDOCAINE HCL 2% LOCAL 20 ML VIAL ONE; +NITROGLYCERIN/D5W 200 MCG/ML 250 ML ONE; -PROPOFOL IV EMULSION 10 MG/ML 50 ML VIAL ONE; +SODIUM CHLORIDE 0.9% 1000ML 1,000 ML ONE
--- NOTE | 2019-09-08 10:16 | NUR ---
1016 am RECEIVING NOTE [facility]............................................................... Bedside report received from Jigna GUZMAN. Identifierx2. Alert oriented and appropriate, PERRLA, respirations even and unlabored to room air. Pulses x4 extremities equal and strong. Pedal pulses PT/DP X4 and marked. Cap fill brisk < 3 sec. Rt.Groin Angio-seal Bedrest till 1215 and dc home at 1315pm. Remains atrial flutter. Asymptomatic. Skin warm and dry integrity appears D/I. IV 20g to left hand at 100cchr via iv controller presents healthy w/o s/s of infiltration or complaint. Abdomen soft and supple. pt offered toileting, denies need to urinate or defecate. No personal affects with patient. No Family at bedside. Pt verbalizes understanding of POC. Currently w/o complaint of pain or need. ds/rn
--- NOTE | 2019-09-08 11:00 | NUR ---
1100am c/o pain 01/13 back pain medicine 10Narco/500Tylenol given Pt helped with po intake tolerated well ds/rn
--- NOTE | 2019-09-08 12:00 | NUR ---
1200 pt states no significant back pain now 08/13 says best it will get. Pt phoned home ride will arrive Brother Rojas will be taught home care at [facility] emergency department gio/rn
--- NOTE | 2019-09-08 12:56 | NUR ---
1256 dressing and ready for dc and arrival for transportation ds/rn
--- NOTE | 2019-09-08 13:15 | NUR ---
1315P Pt meets DC criteria. Rt GRADER MARKER assessed for s/s of complication and presence of hematoma. Skin warm, dry, no discolor, and pulses present. IV removed from left hand. Distal tip appears intact. VS WNL. Pt denies pain, sob, or need at this time. Family here curbside dc planing done. Review of discharge paperwork and follow up instructions. verbalized understanding. Pt to wheelchair and transported to front of hospital. Transferred to private vehicle under own strength w/o incident with DC paperwork in hand. ds/rn
--- NOTE | 2019-09-09 23:16 | Operative Report ---
DATE OF PROCEDURE: 09/08/2019 SURGEON: Konstantin Flores MD STUDY: Peripheral angiography and intervention. PROCEDURE INDICATION: Nonhealing wound to left leg in a patient with concerning for critical limb ischemia. PROCEDURES PERFORMED: 1. Abdominal aortogram with lower extremity angiography, bilateral. 2. A 6-Wallisian angioseal. PROCEDURE COMPLICATIONS: None. ESTIMATED BLOOD LOSS: Less than 15 mL. . PROCEDURE SUMMARY: After consent was obtained, the patient was prepped and draped in a sterile fashion. The right femoral site was locally infiltrated with 2% lidocaine and with micropuncture kit. A 6-Wallisian sheath was placed. Omniflush catheter was positioned in the infrarenal aorta and angiography was performed. Additional catheter advancement to left femoral artery for DSA selective angiographic assessment to better visualize [id number] vessels, which were initially not well visualized, was performed. PROCEDURAL FINDINGS: Infrarenal aorta has luminal irregularities. It gives common iliacs, internal iliac, external iliac artery, common femoral arteries, profunda femoris, SFA, popliteal artery bilaterally with luminal irregularities across these vessels. There is patent anterior tibials, TP trunk to peroneal and posterior tibial bilaterally. There is a small AV malformation in the mid segment of the left peroneal artery to adjacent peroneal vein. At the foot level, there is decreased blushing and capillary density with small vessel outflow disease. However, above the ankle level, there is evidence of luminal irregularities. CONCLUSION: Mild above the ankle peripheral vascular disease with small vessel/outflow disease. Continue medical therapy. Konstantin Flores MD [facility]/MODL /[id number]
== END | disposition home or self-care (01) ==
LOC: CATH LAB 07:33
PROVIDERS: ATTEND Internal Medicine Cardiovascular Disease
DX: I70.245 Atherosclerosis of native arteries of left leg with ulceration of other part of foot (principal); Q27.39 Arteriovenous malformation, other site; R07.9 Chest pain, unspecified; I48.0 Paroxysmal atrial fibrillation; I10 Essential (primary) hypertension; E11.8 Type 2 diabetes mellitus with unspecified complications; E66.01 Morbid (severe) obesity due to excess calories; Z88.1 Allergy status to other antibiotic agents; Z01.812 Encounter for preprocedural laboratory examination; Z11.59 Encounter for screening for other viral diseases; Z79.84 Long term (current) use of oral hypoglycemic drugs; Z79.02 Long term (current) use of antithrombotics/antiplatelets; Z82.49 Family history of ischemic heart disease and other diseases of the circulatory system
CPT/HCPCS: 36200; 36415; 75630; 80053; 80061; 85025; 85610; 85730; 87635; C1769 ×2; J2001; J2250; J3010; J7030; Q9967; 36247; 99152; 99153; J1644

== ENCOUNTER → 2019-11-25 | Outpatient (CLI) | payer OTHER ==
[~2019-11-25] MED LIST changes: -ASPIRIN 325 MG TAB ONE; -FENTANYL CITRATE/PF 100MCG/2 ML INJ ONE; -HEPARIN SOD (PORCINE) 1000 UNIT/ML 30ML ONE; -HEPARIN SOD/SOD CHLORIDE 2,000 ML ONE; -HYDROCODONE/APAP 5MG-325MG TAB ONE; -IOPAMIDOL 300MG/ML 100 ML INFUS..BTL IV ONE; -LIDOCAINE HCL 2% LOCAL 20 ML VIAL ONE; -MIDAZOLAM HCL 2 MG/2 ML VIAL ONE; -NITROGLYCERIN/D5W 200 MCG/ML 250 ML ONE; +REGADENOSON 0.4 MG/5 ML SYR IV ONE; -SODIUM CHLORIDE 0.9% 1000ML 1,000 ML ONE
== END ==
LOC: NM 08:43
PROVIDERS: ATTEND Internal Medicine Clinical Cardiac Electrophysiology
DX: R06.02 Shortness of breath (principal)
CPT/HCPCS: 78452; 93017; A9502; J2785

== ENCOUNTER → 2020-01-16 | Outpatient (CLI) | payer OTHER ==
[~2020-01-16] MED LIST changes: +OZEMPIC1 MG/0.75 SC; -REGADENOSON 0.4 MG/5 ML SYR IV ONE
[2020-01-16 13:30] LABS: BASOPHILS % 0.3 % (0.0-1.0); EOSINOPHILS # (AUTO) 0.3 (0.0-0.4); EOSINOPHILS % 3.6 % (0.0-6.0); HEMATOCRIT 33.6 % (38.2-49.6); HEMOGLOBIN 10.9 g/dL (14.0-18.0); LYMPHOCYTES # (AUTO) 1.1 (1.0-3.2); LYMPHOCYTES % 15.5 % (18.0-39.1); MEAN CORPUSCULAR HEMOGLOBIN 29.1 pg (28-32); MEAN CORPUSCULAR HGB CONC 32.4 g/dL (31-35); MEAN CORPUSCULAR VOLUME 89.6 fL (81-99); MONOCYTES # (AUTO) 0.4 (0.2-0.8); MONOCYTES % 5.3 % (4.4-11.3); NEUTROPHILS # (AUTO) 5.2 (2.1-6.9); NEUTROPHILS % 74.9 % (38.7-80.0); PLATELET COUNT 236 x10e3/uL (140-360); RED BLOOD COUNT 3.75 x10e6/uL (4.3-5.7); RED CELL DISTRIBUTION WIDTH 13.2 % (11.7-14.4)
[2020-01-16 13:51] LABS: ANION GAP 13.1 mmol/L (8-16); CALCIUM 8.4 mg/dL (8.4-10.2); CREATININE, SERUM 1.46 mg/dL (0.72-1.25); POTASSIUM 3.1 mmol/L (3.5-5.1)
--- NOTE | 2020-01-16 14:06 | Diagnostic Imaging Report ---
Chest, 2 views, 01/16/2020. History: Preop, left foot surgery. Comparison: None available. Findings: The cardiomediastinal silhouette and pulmonary vasculature are within normal limits. The lungs are clear without evidence of consolidation or pleural effusion. There are no acute osseous or soft tissue abnormalities. Impression: No acute cardiopulmonary abnormality. Signed by: Yanick Parham on 01/16/2020 2:03 PM
== END ==
LOC: DX 14:01 → EDSTATUS 01-19 06:30
PROVIDERS: ATTEND Podiatrist Foot & Ankle Surgery
DX: Z01.818 Encounter for other preprocedural examination (principal); M20.22 Hallux rigidus, left foot; M77.8 Other enthesopathies, not elsewhere classified; Z11.59 Encounter for screening for other viral diseases
CPT/HCPCS: 36415; 71046; 80048; 85025; U0002

== ENCOUNTER → 2020-04-03 | Day surgery (SDC) | payer OTHER ==
[2020-03-29 10:38] LABS: BASOPHILS % 0.3 % (0.0-1.0); EOSINOPHILS # (AUTO) 0.3 (0.0-0.4); HEMATOCRIT 36.1 % (38.2-49.6); HEMOGLOBIN 11.2 g/dL (14.0-18.0); LYMPHOCYTES # (AUTO) 1.6 (1.0-3.2); LYMPHOCYTES % 24.8 % (18.0-39.1); MEAN CORPUSCULAR HEMOGLOBIN 26.6 pg (28-32); MEAN CORPUSCULAR VOLUME 85.7 fL (81-99); MONOCYTES # (AUTO) 0.6 (0.2-0.8); NEUTROPHILS # (AUTO) 3.8 (2.1-6.9); NEUTROPHILS % 59.6 % (38.7-80.0); PLATELET COUNT 277 x10e3/uL (140-360); RED BLOOD COUNT 4.21 x10e6/uL (4.3-5.7); RED CELL DISTRIBUTION WIDTH 13.7 % (11.7-14.4)
[2020-03-29 11:22] LABS: ANION GAP 13.1 mmol/L (8-16); CALCIUM 8.9 mg/dL (8.4-10.2); CREATININE, SERUM 1.44 mg/dL (0.72-1.25); POTASSIUM 5.1 mmol/L (3.5-5.1)
[~2020-04-03] MED LIST changes: +AMOXICILLIN250 MG PO; +BUPIVACAINE HCL 0.5% INJ 30 ML VIAL INJ ONE; +CEFAZOLIN SOD 1 GM/NS 50ML 0 ML IV ONE; +DEXAMETHASONE SOD PHOS INJ 4 MG/ML VIAL ONE; +FLOMAX0.4 MG PO; +KETOROLAC TROMETHAMINE 30 MG/ML VIAL ONE; +LIDOCAINE HCL 2% LOCAL INJ 5 ML SDV VIAL INJ ONE; +ONDANSETRON HCL INJ 2MG/ML 2ML 2 MG/ML VIAL ONE; +PROPOFOL IV EMULSION 10 MG/ML 20 ML VIAL ONE; +SEVOFLURANE INHAL SOLN 250 ML PEN BTL ONE; +TADALAFIL5 MG PO; +VANCOMYCIN 1GM/NS 250 ML 250 ML ONE
[2020-04-03 08:46] VITALS: BP 123/72
== END | disposition home or self-care (01) ==
LOC: OR 05:29
PROVIDERS: ATTEND Podiatrist Foot & Ankle Surgery
DX: M20.22 Hallux rigidus, left foot (principal); E11.621 Type 2 diabetes mellitus with foot ulcer; L97.529 Non-pressure chronic ulcer of other part of left foot with unspecified severity; M77.8 Other enthesopathies, not elsewhere classified; G47.33 Obstructive sleep apnea (adult) (pediatric); E11.22 Type 2 diabetes mellitus with diabetic chronic kidney disease; I12.9 Hypertensive chronic kidney disease with stage 1 through stage 4 chronic kidney disease, or unspecified chronic kidney disease; N18.9 Chronic kidney disease, unspecified; I25.10 Atherosclerotic heart disease of native coronary artery without angina pectoris; E66.9 Obesity, unspecified; I45.10 Unspecified right bundle-branch block; Z88.1 Allergy status to other antibiotic agents; Z01.810 Encounter for preprocedural cardiovascular examination; Z01.812 Encounter for preprocedural laboratory examination; Z20.828 Contact with and (suspected) exposure to other viral communicable diseases; Z79.84 Long term (current) use of oral hypoglycemic drugs; Z79.02 Long term (current) use of antithrombotics/antiplatelets
CPT/HCPCS: 28291; 36415 ×2; 80048; 82948; 85025; 93005; C1776; J1100; J3370; U0002; J0690; J1885; J2001; J2405

== ENCOUNTER → 2020-08-08 | Outpatient (CLI) | payer OTHER ==
[~2020-08-08] MED LIST changes: -BUPIVACAINE HCL 0.5% INJ 30 ML VIAL INJ ONE; -CEFAZOLIN SOD 1 GM/NS 50ML 0 ML IV ONE; -DEXAMETHASONE SOD PHOS INJ 4 MG/ML VIAL ONE; -KETOROLAC TROMETHAMINE 30 MG/ML VIAL ONE; -LIDOCAINE HCL 2% LOCAL INJ 5 ML SDV VIAL INJ ONE; -ONDANSETRON HCL INJ 2MG/ML 2ML 2 MG/ML VIAL ONE; -PROPOFOL IV EMULSION 10 MG/ML 20 ML VIAL ONE; -SEVOFLURANE INHAL SOLN 250 ML PEN BTL ONE; -VANCOMYCIN 1GM/NS 250 ML 250 ML ONE
== END ==
LOC: RAD 13:43
PROVIDERS: ATTEND Podiatrist
DX: S91.302A Unspecified open wound, left foot, initial encounter (principal)

== ENCOUNTER → 2020-09-26 | Outpatient (CLI) | payer OTHER | LOC: US 10:14 | PROVIDERS: ATTEND Internal Medicine Gastroenterology | DX: R10.10 Upper abdominal pain, unspecified (principal) | CPT/HCPCS: 76700 ==

== ENCOUNTER → 2020-10-11 | Day surgery (SDC) | payer OTHER ==
[~2020-10-11] MED LIST changes: +FENTANYL CITRATE/PF 100MCG/2 ML INJ ONE; +GLUCAGON FOR INJ 1 MG VIAL ONE; +HYOSCYAMINE SULFATE 0.5 MG/ML INJ ONE; +MIDAZOLAM HCL 2 MG/2 ML VIAL ONE; +POVIDONE IODINE 0.05% 0.05 % ML PO ONE; +PROPOFOL IV EMULSION 10 MG/ML 20 ML VIAL ONE
[2020-10-11 14:23] VITALS: BP 118/76
[2020-10-11 17:01] LABS: WBC,FECAL (FECAL LACTOFERRIN) NEGATIVE (NEGATIVE)
[2020-10-12 15:03] LABS: C DIFFICILE TOXIN A&B AMP PROB **POSITIVE** (NEGATIVE)
== END | disposition home or self-care (01) ==
LOC: OR 10:04
PROVIDERS: ATTEND Internal Medicine Gastroenterology
DX: K20.90 Esophagitis, unspecified without bleeding (principal); K63.5 Polyp of colon; D12.2 Benign neoplasm of ascending colon; K62.89 Other specified diseases of anus and rectum; K64.8 Other hemorrhoids; G47.33 Obstructive sleep apnea (adult) (pediatric); E11.9 Type 2 diabetes mellitus without complications; N40.0 Benign prostatic hyperplasia without lower urinary tract symptoms; Z88.8 Allergy status to other drugs, medicaments and biological substances; Z98.84 Bariatric surgery status; R14.0 Abdominal distension (gaseous); I10 Essential (primary) hypertension; Z86.010 Personal history of colon polyps; Z68.39 Body mass index [BMI] 39.0-39.9, adult; Z79.84 Long term (current) use of oral hypoglycemic drugs
CPT/HCPCS: 36415; 43239; 45380; 82948; 83630; 83993; 87045; 87177; 87328; 87493; J1610; J1980; J2250; J2704; J3010; 45378

== ENCOUNTER → 2023-01-14 | Day surgery (SDC) | payer OTHER ==
[2023-01-12 12:58] LABS: BASOPHILS % 0.2 % (0.0-1.0); EOSINOPHILS # (AUTO) 0.3 (0.0-0.4); EOSINOPHILS % 4.5 % (0.0-6.0); HEMATOCRIT 34.6 % (38.2-49.6); HEMOGLOBIN 11.9 g/dL (14.0-18.0); LYMPHOCYTES # (AUTO) 1.4 (1.0-3.2); MEAN CORPUSCULAR HEMOGLOBIN 29.8 pg (28-32); MEAN CORPUSCULAR HGB CONC 34.4 g/dL (31-35); MEAN CORPUSCULAR VOLUME 86.5 fL (81-99); MONOCYTES # (AUTO) 0.4 (0.2-0.8); NEUTROPHILS # (AUTO) 3.7 (2.1-6.9); PLATELET COUNT 201 x10e3/uL (140-360); RED CELL DISTRIBUTION WIDTH 13.6 % (11.7-14.4); WHITE BLOOD COUNT 5.83 x10e3/uL (4.8-10.8)
[~2023-01-14] MED LIST changes: +ALFUZOSIN HCL10 MG PO; +AMOX TR-K CLV1 EAC2 PO; +CIALIS5 MG PO; +CLEOCIN HCL300 MG PO; +FEROSUL325 MG PO; +GLIMEPIRIDE1 MG PO; -GLUCAGON FOR INJ 1 MG VIAL ONE; +GLUCOPHAGE XR500 MG PO; +HYDROCHLOROTHIA50 MG PO; -HYOSCYAMINE SULFATE 0.5 MG/ML INJ ONE; +LACTATED RINGER'S 1,000 ML ONE; +LIDOCAINE HCL 2% LOCAL INJ 5 ML SDV VIAL INJ ONE; +LOSARTAN POTAS100 MG PO; +METFORMIN HCL850 MG PO; -MIDAZOLAM HCL 2 MG/2 ML VIAL ONE; +MULTI-VITAMIN1 EACH PO; +OZEMPIC2 MG/0.75 SC; -POVIDONE IODINE 0.05% 0.05 % ML PO ONE
[2023-01-14 14:30] VITALS: BP 132/83; PULSE 71; RESP 16; O2SAT 99
[2023-01-17 16:10] LABS: ENDOMYSIAL ANTIBODIES, IGA Negative (Negative)
== END | disposition home or self-care (01) ==
LOC: MERGE 10:27 → OR 10:27
PROVIDERS: ATTEND Internal Medicine Gastroenterology
DX: K22.2 Esophageal obstruction (principal); K20.90 Esophagitis, unspecified without bleeding; K29.60 Other gastritis without bleeding; K31.89 Other diseases of stomach and duodenum; R19.7 Diarrhea, unspecified; Z86.010 Personal history of colon polyps; I10 Essential (primary) hypertension; E11.9 Type 2 diabetes mellitus without complications; Z79.84 Long term (current) use of oral hypoglycemic drugs; Z79.85 Long-term (current) use of injectable non-insulin antidiabetic drugs; Z71.3 Dietary counseling and surveillance; Z68.39 Body mass index [BMI] 39.0-39.9, adult; Z98.84 Bariatric surgery status; Z01.810 Encounter for preprocedural cardiovascular examination; Z01.812 Encounter for preprocedural laboratory examination; Z79.899 Other long term (current) drug therapy
CPT/HCPCS: 36415 ×2; 43239; 82784; 82948; 83516; 85025; 86256; 93005; C9113; J2001; J2704; J3010; J7121